=== PATIENT | male | born 1995 | race Caucasian/White ===

== ENCOUNTER 2024-03-27 19:33 | Emergency (ER) | payer OTHER ==
[2024-03-27] MEDS: Ibuprofen 600 MG Tab PO ONE (20:20)
[2024-03-27] MEDS: Diazepam 5 MG Tab PO STA (20:20)
[2024-03-27] MEDS: Acetaminophen 500 MG Tab PO ONE (20:21)
== END 2024-03-27 20:26 | disposition home or self-care (01) ==
LOC: MW.ED 19:33
DX: S16.1XXA Strain of muscle, fascia and tendon at neck level, initial encounter (principal); S20.224A Contusion of middle back wall of thorax, initial encounter; Z88.0 Allergy status to penicillin; Z79.899 Other long term (current) drug therapy; V87.7XXA Person injured in collision between other specified motor vehicles (traffic), initial encounter
CPT/HCPCS: 99283; A9270